=== PATIENT | male | born 1985 | race Caucasian/White ===

== ENCOUNTER 2016-05-30 17:32 | Inpatient (IN) | payer OTHER ==
[2016-05-30] VITALS (7 sets, daily range): BP systolic 126–167; BP diastolic 70–85; PULSE 66–85; RESP 18–20; TEMP 97.8–98.7; O2SAT 97–100
[~2016-05-30] VITALS: Ht 185.4 cm; Wt 78.0 kg
[2016-05-30] MEDS ORDERED: TETANUS/DIPHTHERIA TOXOID ADULT 0.5 ML VIAL IM ONE (18:00)
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
[2016-05-30 18:22] LABS: BASOPHIL # 0.1 TH/MM3 (0-0.2); BASOPHIL % 0.5 % (0.0-2.0); EOSINOPHIL # 0.1 TH/MM3 (0-0.4); HEMATOCRIT 42.3 % (39.0-51.0); HEMO FLAGS DIFF FINAL; LYMPH % 27.8 % (9.0-44.0); LYMPHOCYTE # 3.5 TH/MM3 (1.0-4.8); MEAN CELL VOLUME 89.6 FL (80.0-100.0); MEAN CORPUSCULAR HEMOGLOBIN 30.8 PG (27.0-34.0); MEAN CORPUSCULAR HGB CONC 34.3 % (32.0-36.0); MONO % 6.6 % (0.0-8.0); NEUT % 64.1 % (16.0-70.0); PLATELET COUNT 214 TH/MM3 (150-450); RED BLOOD COUNT 4.72 MIL/MM3 (4.50-5.90); WHITE BLOOD COUNT 12.6 TH/MM3 (4.0-11.0)
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
[2016-05-30] MEDS ORDERED: IOHEXOL 350 MG/ML 10 ML VIAL (for RAD DIAG) IV ONE (18:45)
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
[2016-05-30 18:48] LABS: BICARBONATE 27.2 MEQ/L (21.0-32.0); POTASSIUM 3.4 MEQ/L (3.5-5.1)
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
[2016-05-30] MEDS ORDERED: ONDANSETRON HCL 4 MG/2 ML VIAL IV PUSH ONE (19:15)
[2016-05-30] MEDS ORDERED: KETOROLAC TROMETHAMINE 30 MG/ML (IVP) VIAL IV PUSH ONE (19:15)
[2016-05-30] MEDS ORDERED: HYDROmorphone HCL PF 1 MG/ML VIAL IV PUSH ONE (19:15)
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
[2016-05-30] MEDS ORDERED: CHLORHEXIDINE GLUCONATE 2 % 1 PACK (2 CLOTHS) TOP PRN (20:15)
[2016-05-30] MEDS ORDERED: MISCELLANEOUS NURSING INFORMATION XX SCH (20:15)
[2016-05-30] MEDS ORDERED: ACETAMINOPHEN/HYDROcodone 325 MG/5 MG TAB PO PRN (20:15)
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
[2016-05-30] MEDS: LACTATED RINGER'S 1000 ML INJ 1,000 ML IV SCH (20:44)
[2016-05-30] MEDS: DOCUSATE SODIUM 100 MG CAP PO SCH (20:44)
[2016-05-30] MEDS: ENOXAPARIN SODIUM 30 MG/0.3 ML SYRINGE SQ SCH (20:44)
[2016-05-30] MEDS: ACETAMINOPHEN/HYDROcodone 325 MG/5 MG TAB PO PRN (20:45)
[2016-05-30] MEDS: HYDROmorphone HCL PF 1 MG/ML VIAL IVP PRN ×2 (20:45→23:45)
[2016-05-30] MEDS: SODIUM CHLORIDE 0.9% FLUSH 5 ML FLUSH IVF PRN ×2 (22:47→23:44)
[2016-05-30] MEDS: ONDANSETRON HCL 4 MG/2 ML VIAL IV PRN (22:47)
[2016-05-31] MEDS: ACETAMINOPHEN/HYDROcodone 325 MG/5 MG TAB PO PRN ×6 (00:54→23:21)
[2016-05-31] MEDS: SODIUM CHLORIDE 0.9% FLUSH 5 ML FLUSH IVF PRN (02:56)
[2016-05-31] MEDS: HYDROmorphone HCL PF 1 MG/ML VIAL IVP PRN ×5 (02:57→22:47)
[2016-05-31] MEDS: CHLORHEXIDINE GLUCONATE 2 % 1 PACK (2 CLOTHS) TOP SCH (04:00)
[2016-05-31 04:40] VITALS: BP 137/90; PULSE 63; RESP 17; TEMP 97.4; O2SAT 97
[2016-05-31] MEDS ORDERED: HYDROmorphone HCL PF 2 MG/ML VIAL IV ONE (04:45)
[2016-05-31 05:47] LABS: BASOPHIL % 0.3 % (0.0-2.0); EOSINOPHIL % 0.4 % (0.0-4.0); HEMATOCRIT 39.8 % (39.0-51.0); HEMO FLAGS DIFF FINAL; LYMPH % 18.4 % (9.0-44.0); LYMPHOCYTE # 2.3 TH/MM3 (1.0-4.8); MEAN CELL VOLUME 89.8 FL (80.0-100.0); MEAN CORPUSCULAR HEMOGLOBIN 30.8 PG (27.0-34.0); MEAN CORPUSCULAR HGB CONC 34.3 % (32.0-36.0); MONO % 8.1 % (0.0-8.0); NEUT % 72.8 % (16.0-70.0); PLATELET COUNT 189 TH/MM3 (150-450); RED BLOOD COUNT 4.43 MIL/MM3 (4.50-5.90); RED CELL DISTRIBUTION WIDTH 12.9 % (11.6-17.2); WHITE BLOOD COUNT 12.4 TH/MM3 (4.0-11.0)
[2016-05-31] MEDS: LACTATED RINGER'S 1000 ML INJ 1,000 ML IV SCH ×2 (06:15→16:15)
[2016-05-31 08:00] VITALS: PULSE 80
[2016-05-31] MEDS: MAGNESIUM HYDROXIDE SUSP 30 ML CUP PO SCH (08:10)
[2016-05-31] MEDS: FAMOTIDINE 20 MG TAB PO SCH ×2 (08:10→20:20)
[2016-05-31] MEDS: DOCUSATE SODIUM 100 MG CAP PO SCH ×2 (08:10→20:20)
[2016-05-31] MEDS: ENOXAPARIN SODIUM 30 MG/0.3 ML SYRINGE SQ SCH ×3 (08:11→20:21)
[2016-05-31] MEDS: CYCLOBENZAPRINE HCL 10 MG TAB PO SCH ×3 (08:20→20:20)
[2016-05-31 08:45] VITALS: BP 129/80; PULSE 60; RESP 16; TEMP 97.6; O2SAT 98
[2016-05-31] MEDS: ONDANSETRON HCL 4 MG/2 ML VIAL IV PRN ×2 (10:27→20:20)
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
--- NOTE | 2016-05-31 15:55 | HHI.PR ---
Subjective Subjective Notes Complains of right clavicle and right hip pain. Awaiting Ortho consult Objective Vitals/I&O Vital Signs Date Time Temp Pulse Resp B/P Pulse Ox O2 Delivery O2 Flow Rate FiO2 05/31/16 08:45 97.6 60 16 129/80 98 05/30/16 20:51 Room Air Labs Laboratory Tests Test 05/30/16 05/31/16 18:15 05:32 White Blood Count 12.6 12.4 Red Blood Count 4.72 4.43 Hemoglobin 14.5 13.6 Hematocrit 42.3 39.8 Mean Corpuscular Volume 89.6 89.8 Mean Corpuscular Hemoglobin 30.8 30.8 Mean Corpuscular Hemoglobin 34.3 34.3 Concent Red Cell Distribution Width 13.0 12.9 Platelet Count 214 189 Mean Platelet Volume 10.6 10.3 Neutrophils (%) (Auto) 64.1 72.8 Lymphocytes (%) (Auto) 27.8 18.4 Monocytes (%) (Auto) 6.6 8.1 Eosinophils (%) (Auto) 1.0 0.4 Basophils (%) (Auto) 0.5 0.3 Neutrophils # (Auto) 8.0 9.0 Lymphocytes # (Auto) 3.5 2.3 Monocytes # (Auto) 0.8 1.0 Eosinophils # (Auto) 0.1 0.0 Basophils # (Auto) 0.1 0.0 CBC Comment DIFF FINAL DIFF FINAL Differential Comment Sodium Level 139 Potassium Level 3.4 Chloride Level 104 Carbon Dioxide Level 27.2 Anion Gap 8 Blood Urea Nitrogen 10 Creatinine 0.88 Estimat Glomerular Filtration 102 Rate Random Glucose 99 Calcium Level 8.7 Narrative Exam GENERAL: 30 year old well-nourished, well developed male lying in bed. SKIN: Warm and dry. Ecchymosis noted to right clavicle. HEAD: Normocephalic. EYES: PERRL. ENT: No nasal bleeding or discharge. Mucous membranes pink and moist. NECK: Trachea midline. No JVD. CARDIOVASCULAR: Regular rate and rhythm. RESPIRATORY: No accessory muscle use. Lungs clear to auscultation. Breath sounds equal bilaterally. GASTROINTESTINAL: Abdomen soft, non-tender, nondistended. + BS. MUSCULOSKELETAL: Extremities without cyanosis, or edema. No obvious deformities. RIGHT arm in sling. MAEW, + sensation and pulses x4. NEUROLOGICAL: Awake and alert. Normal speech. A/P Assessment and Plan INJURIES: RIGHT clavicle fx C5-C6 disc herniation Diet: Clears, advance to regular Pulmonary: IS, encouraged use. Pain: IV Dilaudid, Coleman, Flexeril. Activity: OOB, PT and OT ordered. IV: LR @ 100 GI: Pepcid PO Bowel: Colace, MOM. No BM yet. DVT: Lovenox, SCDs Awaiting Ortho consultation for right clavicle fracture recommendations. Neurosurgery following for C5 - C6 disc herniation. Appreciate recommendations. Plan of care discussed with patient and RN at bedside. Patient is being managed on Med/Surg. Trauma surgery will follow the patient on a daily basis and make recommendations. Alfredo Young May 31, 2016 15:54
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
[2016-05-31 20:07] VITALS: BP 155/85; PULSE 61; RESP 18; TEMP 96.9; O2SAT 98
[2016-06-01 00:08] VITALS: BP 133/66; PULSE 54; RESP 17; TEMP 97.3; O2SAT 98
[2016-06-01] MEDS: LACTATED RINGER'S 1000 ML INJ 1,000 ML IV SCH (02:15)
[2016-06-01] MEDS: HYDROmorphone HCL PF 1 MG/ML VIAL IVP PRN ×4 (02:48→13:18)
[2016-06-01] MEDS: ACETAMINOPHEN/HYDROcodone 325 MG/5 MG TAB PO PRN ×2 (03:53→08:19)
[2016-06-01] MEDS: CHLORHEXIDINE GLUCONATE 2 % 1 PACK (2 CLOTHS) TOP SCH (04:00)
[2016-06-01 04:15] VITALS: BP 124/63; PULSE 78; RESP 17; TEMP 97.5; O2SAT 97
[2016-06-01] MEDS: CYCLOBENZAPRINE HCL 10 MG TAB PO SCH ×2 (06:00→13:17)
[2016-06-01 08:00] VITALS: BP 137/87; PULSE 63; RESP 16; TEMP 98.1; O2SAT 100
[2016-06-01] MEDS: ENOXAPARIN SODIUM 30 MG/0.3 ML SYRINGE SQ SCH (08:18)
[2016-06-01] MEDS: FAMOTIDINE 20 MG TAB PO SCH (08:18)
[2016-06-01] MEDS: DOCUSATE SODIUM 100 MG CAP PO SCH (08:18)
[2016-06-01] MEDS: SODIUM CHLORIDE 0.9% FLUSH 5 ML FLUSH IVF PRN ×2 (08:22→10:09)
[2016-06-01] MEDS: MAGNESIUM HYDROXIDE SUSP 30 ML CUP PO SCH (08:22)
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
[2016-06-01 12:00] VITALS: BP 138/84; PULSE 55; RESP 16; TEMP 96.6; O2SAT 98
[2016-06-01] MEDS ORDERED: DILA2TAB2 PO (12:45)
[2016-06-01] MEDS ORDERED: CYCL1TAB29 PO (13:13)
[2016-06-01] MEDS ORDERED: KETO10 PO (13:13)
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
--- NOTE | 2016-06-01 18:12 | PD.ORT.PN ---
Subjective Subjective Remarks Right clavicle fracture Range of Motion Full consult dictated Objective Vitals Vital Signs Date Time Temp Pulse Resp B/P Pulse Ox O2 Delivery O2 Flow Rate FiO2 06/01/16 12:00 96.6 55 16 138/84 98 06/01/16 08:00 98.1 63 16 137/87 100 06/01/16 04:15 97.5 78 17 124/63 97 06/01/16 00:08 97.3 54 17 133/66 98 05/31/16 20:07 96.9 61 18 155/85 98 I/O 05/31/16 05/31/16 05/31/16 06/01/16 06/01/16 06/01/16 07:00 15:00 23:00 07:00 15:00 23:00 Intake Total 0 ml 240 ml 240 ml Balance 0 ml 240 ml 240 ml Intake Oral 0 ml 240 ml 240 ml # Voids 1 1 2 # Bowel Movements 0 0 0 Result Diagram: 05/31/16 0532 05/30/16 1815 Assessment & Plan Problem List: (1) Right clavicle fracture Assessment and Plan The condition was discussed and the options of treatment were discussed Recommend non-operative fracture care Proceed with sling Consider figure of eight brace Follow up in office in 1 week for repeat xray with figure of eight brace in place Cristian Wheat MD Jun 01, 2016 18:12
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
== END 2016-06-01 14:32 | disposition home or self-care (01) | DRG 563 ==
LOC: NEPE 17:32 → UNDOADMOB 19:49 → OBSVTOIN 19:49 → NEDH 19:49 → NEDA 19:49 → NEPFCDU 22:01 → N06B 05-31 03:14
PROVIDERS: ADMIT Surgery Trauma Surgery; ATTEND Surgery Trauma Surgery
DX: S42.021A Displaced fracture of shaft of right clavicle, initial encounter for closed fracture (principal); M50.222 Other cervical disc displacement at C5-C6 level; F17.210 Nicotine dependence, cigarettes, uncomplicated; S40.011A Contusion of right shoulder, initial encounter; S70.01XA Contusion of right hip, initial encounter; V49.59XA Passenger injured in collision with other motor vehicles in traffic accident, initial encounter; Y92.410 Unspecified street and highway as the place of occurrence of the external cause
CPT/HCPCS: 70450; 71260; 72125; 72141; 73000; 73030; 73502; 74177; 80048; 85025; 90471; 90714; 94150; 96374; 96375; J1170; J1650; J1885; J2405; J7120; Q9967

== ENCOUNTER 2016-06-19 12:28 | Emergency (ER) | payer OTHER ==
[~2016-06-19] VITALS: Ht 185.4 cm; Wt 72.7 kg
[~2016-06-19 12:28] MED LIST: CYCL1TAB29 PO; DILA2TAB2 PO; KETO10 PO
[2016-06-19 12:30] VITALS: BP 129/75; PULSE 88; RESP 16; TEMP 98.2; O2SAT 96
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
[2016-06-19 14:05] LABS: BASOPHIL # 0.1 TH/MM3 (0-0.2); BASOPHIL % 0.9 % (0.0-2.0); EOSINOPHIL # 0.3 TH/MM3 (0-0.4); EOSINOPHIL % 3.4 % (0.0-4.0); HEMATOCRIT 36.3 % (39.0-51.0); HEMO FLAGS DIFF FINAL; LYMPH % 30.5 % (9.0-44.0); LYMPHOCYTE # 2.6 TH/MM3 (1.0-4.8); MEAN CELL VOLUME 90.4 FL (80.0-100.0); MEAN CORPUSCULAR HEMOGLOBIN 31.2 PG (27.0-34.0); MEAN CORPUSCULAR HGB CONC 34.5 % (32.0-36.0); MONO % 6.6 % (0.0-8.0); NEUT % 58.6 % (16.0-70.0); PLATELET COUNT 273 TH/MM3 (150-450); RED BLOOD COUNT 4.02 MIL/MM3 (4.50-5.90); WHITE BLOOD COUNT 8.6 TH/MM3 (4.0-11.0)
[2016-06-19 14:14] LABS: APTT (PATIENT) 32.7 SEC (24.3-30.1); PROTHROMBIN TIME - PATIENT 11.1 SEC (9.8-11.6)
[2016-06-19 14:22] LABS: ALT (GPT) 26 U/L (12-78); ANION GAP 7 MEQ/L (5-15); AST (GOT) 16 U/L (15-37); BLOOD UREA NITROGEN 7 MG/DL (7-18); CHLORIDE 107 MEQ/L (98-107); GLOMERULAR FILTRATION RATE 135 ML/MIN (>89); POTASSIUM 4.3 MEQ/L (3.5-5.1); SODIUM (NA) 140 MEQ/L (136-145)
[2016-06-19 14:24] LABS: ALKALINE PHOSPHATASE 56 U/L (45-117); TOTAL BILIRUBIN ADULT 0.2 MG/DL (0.2-1.0)
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
[2016-06-19 15:27] VITALS: BP 136/73; PULSE 87; RESP 20; O2SAT 98
[2016-06-19] MEDS ORDERED: ACETAMINOPHEN/HYDROcodone 325 MG/5 MG TAB PO ONE (15:45)
[2016-06-19] MEDS ORDERED: PANTOPRAZOLE SODIUM 40 MG VIAL IVP ONE (15:45)
[2016-06-19] MEDS ORDERED: SODIUM CHLORIDE 0.9% FLUSH 5 ML FLUSH IVF PRN (15:45)
[2016-06-19] MEDS ORDERED: ONDANSETRON HCL 4 MG/2 ML VIAL IV PUSH ONE (15:45)
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
[2016-06-19 15:52] VITALS: O2SAT 98
[2016-06-19 16:00] VITALS: BP 126/68; PULSE 70; RESP 16; O2SAT 98
[2016-06-19] MEDS ORDERED: IOHEXOL 350 MG/ML 10 ML VIAL (for RAD DIAG) IV ONE (16:33)
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
[2016-06-19] MEDS ORDERED: VENTAER INH (17:27)
[2016-06-19] MEDS ORDERED: LEVA750T PO (17:27)
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
[2016-06-19 18:18] VITALS: BP 120/67; PULSE 84; RESP 12; O2SAT 98
== END 2016-06-19 19:06 | disposition home or self-care (01) ==
LOC: NEPC 12:28
DX: J18.1 Lobar pneumonia, unspecified organism (principal); S20.219D Contusion of unspecified front wall of thorax, subsequent encounter; R10.13 Epigastric pain; Z72.0 Tobacco use; V89.2XXD Person injured in unspecified motor-vehicle accident, traffic, subsequent encounter
CPT/HCPCS: 71010; 71275; 74177; 80053; 83690; 85025; 85610; 85730; 96374; 96375; 99285; C9113; J2405; Q9967